=== PATIENT | female | born 1965 | race Caucasian/White ===

== ENCOUNTER → 2019-04-23 11:19 | Outpatient (CLI) | payer BC ==
[2019-04-01 17:50] VITALS: BMI 38.8
[~2019-04-23 11:19] MED LIST: CHRONULAC30 ML PO
== END | disposition home or self-care (01) ==
LOC: D.US 11:19
PROVIDERS: ATTEND Internal Medicine Gastroenterology
DX: R11.2 Nausea with vomiting, unspecified (principal); R10.84 Generalized abdominal pain; R63.4 Abnormal weight loss

== ENCOUNTER 2020-04-07 13:51 | Emergency (ER) | payer BC ==
[~2020-04-07] VITALS: Ht 167.6 cm; Wt 111.4 kg
[2020-04-07 14:06] VITALS: BP 133/82; Ht 167.6 cm; Wt 111.4 kg
[2020-04-07] MEDS ORDERED: CLOTRIMAZOLE-BE30 ML TOPICAL (14:10)
[2020-04-07] MEDS ORDERED: FOLIC ACID1 MG PO (14:11)
[2020-04-07] MEDS ORDERED: CYMBALTA60 MG PO (14:11)
[2020-04-07] MEDS ORDERED: CYCLOBENZAPRINE5 MG PO (14:11)
[2020-04-07] MEDS ORDERED: NEURONTIN 300300 MG PO (14:12)
[2020-04-07] MEDS ORDERED: GLYBURIDE2.5 MG PO (14:13)
[2020-04-07] MEDS ORDERED: HYDROCORTISONE30 G9 TOPICAL (14:13)
[2020-04-07] MEDS ORDERED: LISINOPRIL10 MG PO (14:14)
[2020-04-07] MEDS ORDERED: GLUCOPHAGE1000 MG PO (14:14)
[2020-04-07] MEDS ORDERED: MORPHINE IMMEDI15 MG PO (14:15)
[2020-04-07] MEDS ORDERED: CELLCEPT500 MG PO (14:15)
[2020-04-07] MEDS ORDERED: NYSTATIN1 PWD TOPICAL (14:16)
[2020-04-07] MEDS ORDERED: ZOFRAN ODT4 MG/UDTAB PO (14:16)
[2020-04-07] MEDS ORDERED: PROTONIX40 MG PO (14:17)
[2020-04-07] MEDS ORDERED: STERAPRED 5MG 125 MG PO (14:17)
[2020-04-07] MEDS ORDERED: TRAZODONE HCL50 MG PO (14:18)
[2020-04-07] MEDS ORDERED: PHENERGAN25 M1 PO (14:18)
[2020-04-07] MEDS ORDERED: KENALOG IN ORABA5 GM TOPICAL (14:19)
[2020-04-07 14:28] LABS: BASOPHILS 0.3 % (0-2); EOSINOPHILS 4.5 % (0-7); HEMATOCRIT 41.8 % (36.0-48.0); HEMOGLOBIN 13.3 g/dL (12-16); IMMATURE GRANULOCYTES 0.2 % (0-5); LYMPHOCYTE ABS# 2.39 10x3/uL (1.18-3.74); LYMPHOCYTES 26.2 % (15-50); MCH 29.6 pg (26.0-34.0); MCHC 31.8 g/dL (31.0-37.0); MCV 92.9 fL (80.0-100.0); MEAN PLATELET VOLUME 9.8 fL (7.4-10.4); MONOCYTES 12.7 % (2-11); NEUTROPHIL ABS# 5.12 10x3/uL (1.56-6.13); NEUTROPHILS 56.1 % (40-80); RDW 12.9 % (11.5-14.5); WBC 9.1 10x3/uL (4.8-10.8)
[2020-04-07 14:29] LABS: PLATELET COUNT 197 10x3/uL (130-400)
[2020-04-07 14:51] LABS: CALC OSMOLALITY 285 mosm/kg (275-300); CALCIUM 8.8 mg/dL (8.5-10.1); CARBON DIOXIDE 30.7 mmol/L (21.0-32.0); CHLORIDE - SERUM 104 mmol/L (98-107); GLUCOSE 160 mg/dL (74-106); POTASSIUM - SERUM 3.6 mmol/L (3.5-5.1); SODIUM 142 mmol/L (136-145); UREA NITROGEN 12 mg/dL (7-18); eGFR NON AFRICAN AMERICAN 61 mL/min (90-120)
[2020-04-07 14:56] LABS: ALBUMIN 3.3 g/dL (3.4-5.0); ALKALINE PHOSPHATASE 95 U/L (30-120); ALT (SGPT) 38 U/L (10-68); AMYLASE - SERUM 33 U/L (25-115); BILIRUBIN - TOTAL 0.42 mg/dL (0.2-1.3); LIPASE 87 U/L (73-393); PROTEIN - SERUM 6.4 g/dL (6.4-8.2); TROPONIN-I < 0.017 ng/mL (0.000-0.060)
== END 2020-04-07 17:13 | disposition home or self-care (01) ==
LOC: D.ER 13:51
PROVIDERS: Family Medicine
DX: R10.9 Unspecified abdominal pain (principal); K46.9 Unspecified abdominal hernia without obstruction or gangrene; K59.00 Constipation, unspecified; E11.9 Type 2 diabetes mellitus without complications; Z79.84 Long term (current) use of oral hypoglycemic drugs; K76.0 Fatty (change of) liver, not elsewhere classified; M54.9 Dorsalgia, unspecified

== ENCOUNTER 2020-04-22 13:00 | Outpatient (CLI) | payer BC ==
[2020-04-07 14:06] VITALS: BMI 39.6
[~2020-04-22 13:00] MED LIST changes: +CELLCEPT500 MG PO; +CLOTRIMAZOLE-BE30 ML TOPICAL; +CYCLOBENZAPRINE5 MG PO; +CYMBALTA60 MG PO; +FOLIC ACID1 MG PO; +GLUCOPHAGE1000 MG PO; +GLYBURIDE2.5 MG PO; +HYDROCORTISONE30 G9 TOPICAL; +KENALOG IN ORABA5 GM TOPICAL; +LISINOPRIL10 MG PO; +MORPHINE IMMEDI15 MG PO; +NEURONTIN 300300 MG PO; +NYSTATIN1 PWD TOPICAL; +PHENERGAN25 M1 PO; +PROTONIX40 MG PO; +STERAPRED 5MG 125 MG PO; +TRAZODONE HCL50 MG PO; +ZOFRAN ODT4 MG/UDTAB PO
== END 2020-04-22 23:59 | disposition home or self-care (01) ==
LOC: D.MAMMO 13:00
PROVIDERS: ATTEND Family Medicine
DX: R92.8 Other abnormal and inconclusive findings on diagnostic imaging of breast (principal)

== ENCOUNTER → 2020-05-14 15:13 | Outpatient (CLI) | payer BC ==
[2020-04-07 14:06] VITALS: BMI 39.6
== END | disposition home or self-care (01) ==
LOC: D.RAD 15:13
PROVIDERS: ATTEND Pain Medicine Interventional Pain Medicine
DX: M25.552 Pain in left hip (principal); M25.559 Pain in unspecified hip; G89.4 Chronic pain syndrome; Z79.899 Other long term (current) drug therapy; Z79.891 Long term (current) use of opiate analgesic

== ENCOUNTER 2020-08-12 05:35 | Day surgery (SDC) | payer BC ==
[2020-08-11 17:13] LABS: EOSINOPHILS 0.8 % (0-7); HEMATOCRIT 39.7 % (36.0-48.0); HEMOGLOBIN 12.9 g/dL (12-16); LYMPHOCYTES 21.3 % (15-50); MCH 30.1 pg (26.0-34.0); MCHC 32.6 g/dL (31.0-37.0); MCV 92.3 fL (80.0-100.0); MEAN PLATELET VOLUME 7.9 fL (7.4-10.4); MONOCYTES 9.7 % (2-11); NEUTROPHILS 67.2 % (40-80); PLATELET COUNT 211 10x3/uL (130-400); RDW 14.5 % (11.5-14.5); WBC 8.1 10x3/uL (4.8-10.8)
[2020-08-11 17:21] LABS: CALC OSMOLALITY 291 mosm/kg (275-300); CALCIUM 8.2 mg/dL (8.5-10.1); CARBON DIOXIDE 30.4 mmol/L (21.0-32.0); CHLORIDE - SERUM 106 mmol/L (98-107); CREATININE - SERUM 0.8 mg/dL (0.6-1.3); POTASSIUM - SERUM 3.9 mmol/L (3.5-5.1); SODIUM 143 mmol/L (136-145); UREA NITROGEN 15 mg/dL (7-18); eGFR NON AFRICAN AMERICAN 79 mL/min (90-120)
[2020-08-11 17:24] LABS: GLUCOSE 210 mg/dL (74-106)
[~2020-08-12] VITALS: Ht 165.1 cm; Wt 107.0 kg
[~2020-08-12 05:35] MED LIST changes: +MIRALAX17 GM PO; +MS CONTIN30 MG PO; +PREDNISONE5 MG PO; -STERAPRED 5MG 125 MG PO; +TRULANCE3 MG PO
[2020-08-12 07:04] VITALS: BP 133/83; Ht 165.1 cm; Wt 107.0 kg
[2020-08-12] MEDS ORDERED: HYDROCODON-ACE1 EA10 PO (09:09)
--- NOTE | 2020-08-12 10:15 | NUR ---
DISCHARGE INSTRUCTIONS REVIEWED WITH PT AND COPY PROVIDED. ORIGINAL RX FOR NORCO PROVIDED. PT VOICED UNDERSTANDING OF ALL. 1100- IV DC'D WITH CATH TIP INTACT. PT GETTING DRESSED FOR DISCHARGE. 1115- PT DISCHARGED VIA W/C, ACCOMPANIED BY [facility], TO [facility] WITH SPOUSE DRIVING. ALL BELONGINGS WITH PT.
--- NOTE | 2020-08-17 13:46 | OP ---
PATIENT NAME: URIAH NAM MEDICAL RECORD: [id number] :63 LOCATION:D.OPS ADMISSION DATE: SURGEON: BYRON ALAN MD DATE OF OPERATION: 08/12/2020 PREOPERATIVE DIAGNOSES: 1. Ventral hernia times 2. 2. Chronic lung disease. 3. [place]'s disease. 4. Gastroparesis. 5. Polymyositis. 6. Diabetes mellitus. POSTOPERATIVE DIAGNOSES: 1. Ventral hernia times 2. 2. Chronic lung disease. 3. [place]'s disease. 4. Gastroparesis. 5. Polymyositis. 6. Diabetes mellitus. PROCEDURE: Ventral hernia repair times 2 [address] mesh. SURGEON: Byron Alan M.D. REPORT OF PROCEDURE: The patient's abdomen was prepped and draped in sterile fashion. A cutdown was made in the midline just above the umbilicus. An electrocautery was used to dissect through the subcutaneous tissues. We encountered a fat-containing hernia. This hernia defect was actually quite small, so we had to actually ligate the fatty tissue at its base and at this point, we could see there is about 0.5 x 1 cm hernia defect present. Down towards the umbilicus we were able to dissect out another hernia defect. This one had a little bit larger base. It was a around 1.5 cm wide and about 1 cm long. These were approximately 4 cm apart with the fascia in the midline overlying this was quite thin. I went ahead and freed up the tissues around the area and then inserted a 4.[address] mesh in an underlay fashion and sutured it on the top and bottom with 0 Prolenes. This covered both openings. The 2 openings were then closed with a transverse interrupted 0 Prolenes. Each of these Prolenes incorporated a bite of the mesh. At this point, we irrigated out the wound bed with sterile saline. There was no evidence of any active bleeding. The umbilicus was tacked down with a single interrupted 3-0 Vicryl and the subcutaneous tissues were reapproximated with multiple interrupted 3-0 Vicryls. The skin was infused with 10 mL of 0.25% Marcaine with epinephrine and then closed with running subcutaneous 5-0 Monocryl. COMPLICATIONS: None. CONDITION: Stable. ANESTHESIA: General endotracheal and local. BLOOD LOSS: Minimal. TRANSINT:[id number] Voice Confirmation ID: [id number] DOCUMENT ID: [id number] OPERATIVE REPORT [id number] URIAH NAM CHRISTIAN MD at 1346 CC: INDIA VILLAREAL MD [id number] DICTATION DATE: 08/12/20910 SLURRY BLENDER: 08/12/20 0954 [facility] 08/12/[address] [id number]
== END 2020-08-12 11:15 | disposition home or self-care (01) ==
LOC: D.OPS 05:35
PROVIDERS: ATTEND Surgery
DX: K43.9 Ventral hernia without obstruction or gangrene (principal); J98.4 Other disorders of lung; E27.1 Primary adrenocortical insufficiency; K31.84 Gastroparesis; M33.20 Polymyositis, organ involvement unspecified; E11.9 Type 2 diabetes mellitus without complications